=== PATIENT | female | born 1950 | race Caucasian/White ===

== ENCOUNTER 2016-12-25 18:46 | Emergency (ER) | payer OTHER ==
[~2016-12-25] VITALS: Ht 160 cm; Wt 61.2 kg
[~2016-12-25 18:46] MED LIST: TYLENOL #31 TAB PO
[2016-12-25 19:23] VITALS: BP 148/83
[2016-12-25] MEDS ORDERED: PREDNISONE10 M2 PO (19:38)
--- NOTE | 2016-12-25 19:39 | ED SKIN/ALLERGY COMPLAINT ---
History of Present Illness General Chief Complaint: Allergy Symptoms Stated Complaint: ALLERGIC REACTION SINCE THIS AM/RED FACE Source: patient, old records Exam Limitations: no limitations Vital Signs & Intake/Output Vital Signs & Intake/Output Vital Signs Date Time Temp Pulse Resp B/P Pulse O2 O2 Flow FiO2 Ox Delivery Rate 12/25 1922 97.9 68 18 148/83 98 Room Air Allergies Coded Allergies: MDX - Bananas (Bananas) (THROAT SWELLING ANAPHYLACTIC REACTIONS 11/04/12) MDX - Cephalexin (From KEFLEX) (UNKNOWN 11/04/12) MDX - Ciprofloxacin (From CIPRO HC) (UNKNOWN 11/04/12) MDX - [place] (CITRUS) (NUK 11/04/12) MDX - Fruits (Fruits) (UNKNOWN REACTION TO MELON 11/04/12) MDX - Hydrocortisone (From CIPRO HC) (UNKNOWN 11/04/12) MDX - Macrolide (Erythromycin-Relat (Macrolide (Erythromycin-Related)) (UNKNOWN REACTION TO "MYCIN DRUGS" 11/04/12) MDX - PCN (penicillin) (PCN (PENICILLIN)) (UNKNOWN 11/04/12) MDX - Sulfamethoxazole (From BACTRIM) (UNKNOWN 11/04/12) MDX - Tetracycline (TETRACYCLINE) (UNKNOWN 11/04/12) MDX - Trimethoprim (From BACTRIM) (UNKNOWN 11/04/12) Reconcile Medications Prednisone 10 MG TABLET 1 TAB PO DAILY ALLERGIC REACTION TAKE 4 TABS FOR 3 DAYS THEN TAKE 3 TABS FOR 3 DAYS THEN TAKE 2 TABS FOR 3 DAYS THEN TAKE 1 TAB FOR 3 DAYS Tylenol With Codeine (Tylenol With Codeine #3 Tablet) 1 TAB TAB 1 TAB PO Q6HR PRN PAIN Triage Note: PT TO ED C/O RASH TO FACE FROM ?ALLERGIC REACTION. NOT SURE OF CAUSE, MIGHT BE PEACH PIE LAST NIGHT. DENIES ANY OTHER NEW FOODS, DETERGEATS, LOTIONS ETC. "I'M VERY ALLERGIC" TOOK 3 DOSES OF ALLERGY MEDS TODAY "I DIDN'T WANT TO OVER MEDICATE" O2 SAT 98% ON RA. SPEAKING IN FULL SENTECES Triage Nurses Notes Reviewed? yes HPI: Patient woke up this morning and her face was red and itchy. Similar symptoms in the past when she has had allergic reactions. Patient is taking antihistamines throughout the day without any relief. The rash is not spreading and is staying on her face. There is no difficulty breathing or swallowing. There is no tingling in her throat or on her lips. The patient states that when he gets like this she usually needs steroids. Patient denies any pain. Past History Travel History Traveled to [place] past 21 day No Medical History Any Pertinent Medical History? see below for history EENT: allergies Cardiovascular: hyperlipidemia Surgical History Surgical History: non-contributory, N Psychosocial History What is your primary language Telugu Tobacco Use: Quit <30 days ago ETOH Use: occasional use Illicit Drug Use: denies illicit drug use Family History Hx Contributory? No Review of Systems Review of Systems Constitutional: Reports: no symptoms. EENTM: Reports: no symptoms. Respiratory: Reports: no symptoms. Cardiovascular: Reports: no symptoms. Musculoskeletal: Reports: no symptoms. Skin: Reports: see HPI, rash. Immunologic/Allergic: Reports: no symptoms. Physical Exam Physical Exam General Appearance: well developed/nourished, alert, awake, anxious, mild distress Head: atraumatic Eyes: Bilateral: PERRL, EOMI. Ears, Nose, Throat: normal pharynx, normal ENT inspection, NO EDEMA Neck: normal inspection, supple, full range of motion, NO STRIDOR Respiratory: normal breath sounds, chest non-tender, no respiratory distress, lungs clear Cardiovascular: regular rate/rhythm, normal peripheral pulses Neurologic/Psych: no motor/sensory deficits, awake, alert, oriented x 3, normal gait, normal mood/affect Skin: rash Skin Problem Location: face Skin Problem Character: erythema Progress Differential Diagnosis: allergic reaction Plan of Care: Current Medications Sig/Cl Start time Last Medication Dose Stop Time Status Admin Prednisone 60 MG ONCE ONE 12/25 1944 UNVr 12/25 1945 Departure Departure Disposition: HOME OR SELF CARE Condition: Stable Clinical Impression Primary Impression: Allergic reaction Referrals: YO MORAN,ABBY Reynoso (PCP/Family) Additional Instructions: take the zyrtec take prednisone as prescribed return if symptoms worsen or for any concerns Departure Forms: Customer Survey General Discharge Information Prescriptions: Current Visit Scripts Prednisone 1 TAB PO DAILY #30 TAB TAKE 4 TABS FOR 3 DAYS THEN TAKE 3 TABS FOR 3 DAYS THEN TAKE 2 TABS FOR 3 DAYS THEN TAKE 1 TAB FOR 3 DAYS
== END 2016-12-25 19:50 ==
LOC: ERH 18:46
DX: T78.40XA Allergy, unspecified, initial encounter (principal)

== ENCOUNTER 2018-01-16 11:48 | Emergency (ER) | payer OTHER ==
[~2018-01-16] VITALS: Ht 160 cm; Wt 53.5 kg
[~2018-01-16 11:48] MED LIST changes: +PREDNISONE10 M2 PO
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
[2018-01-16] MEDS ORDERED: ZYRTEC10 M3 PO (12:16)
[2018-01-16] MEDS ORDERED: PERCOCET 5-3251 EACH PO (12:36)
--- NOTE | 2018-01-16 12:57 | RADIOLOGY REPORT ---
EXAMINATION: XR WRIST, LEFT CLINICAL INFORMATION: Pain. COMPARISON: None TECHNIQUE: PA, lateral, oblique, and scaphoid views of the left wrist. FINDINGS: Bony alignment and mineralization are normal. There is a neutral ulnar variance. The proximal and distal carpal rows are intact. No acute fracture or dislocation is seen. 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 A tiny soft tissue calcification is incidentally noted in the lateral soft tissues of the left wrist. No foreign body is seen. There is no soft tissue swelling. IMPRESSION: 1. No acute fracture or dislocation is seen. 2. 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
[2018-01-16 13:15] VITALS: BP 126/88
== END 2018-01-16 13:16 ==
LOC: ERH 11:48
DX: S63.502A Unspecified sprain of left wrist, initial encounter (principal); M19.032 Primary osteoarthritis, left wrist; W50.1XXA Accidental kick by another person, initial encounter; Y92.9 Unspecified place or not applicable; Y93.9 Activity, unspecified
CPT/HCPCS: 73110-LT